=== PATIENT | female | born 1965 | race Caucasian/White ===

== ENCOUNTER 2023-08-27 02:43 | Day surgery (SDC) | payer OTHER, SELFPAY ==
[2023-08-07 15:08] VITALS: BMI 20.6
--- NOTE | 2023-08-26 09:15 | SUR.PREOP ---
Patient called regarding upcoming procedure. Reviewed preop instructions, appointment times, and procedure prep.
[2023-08-27 11:11] VITALS: BP 142/81; PULSE 83; RESP 16; TEMP 36.3; O2SAT 100; BMI 20.3
[2023-08-27] MEDS: LACTATED RINGERS 1,000 ML 150 ML IV CONT (11:20)
--- NOTE | 2023-08-27 11:28 | P.PNAN_ITS ---
Anes - Initial Pre Proc Eval Procedure: Operation Date: 08/27/23 12:30 Proposed Procedures p Screening Colonoscopy - Ryley Tijerina MD Date/Time: 08/27/23 11:28 Surgeon: Ryley Tijerina MD Pre Op Diagnosis: neoplasm screening Patient Data Age: 57 Gender: F Height: 1.73 m Weight: 60.7 kg Last Vital Signs Temp 97.3 F L 08/27/23 11:11 Pulse 83 08/27/23 11:11 Resp 16 08/27/23 11:11 BP 142/81 H 08/27/23 11:11 Pulse Ox 100 08/27/23 11:11 O2 Del Method Room Air 08/27/23 11:11 Allergies Allergy/AdvReac Type Severity Reaction Status Date / Time Penicillins AdvReac Rash Verified 08/27/23 11:09 Home Medications Medication Instructions Recorded Confirmed Type No Home Medications 08/27/23 08/27/23 History Patient hx anesthesia problems: none Family hx anesthesia problems: none Results Review: All pre-operative results and documents have been reviewed as part of the pre- operative evaluation. PMF Social History Social History Smoking status: Never smoker Alcohol use details: rarely Substance use type: does not use Living arrangements: with family Anes - Eval Final PreProcedure Day of Procedure 08/27/23 11:28 Patient weight: normal Heart: regular rate and rhythm Lungs: clear to auscultation Airway: Mallampati scale class II Neurological: alert and oriented Last oral intake: >/= 8 hours ASA classification: II Emergent: no Anesthetic plan: proceed Anesthesia type and monitoring: general GIVS and standard monitoring Results Review: All pre-operative results and documents have been reviewed as part of the pre- operative evaluation. Informed Consent: The patient's anesthetic plan and its attendant risks and benefits were discussed with the patient/family/POA. Questions were solicited and answers provided to the satisfaction of the patient/family/POA.
--- NOTE | 2023-08-27 11:49 | P.HP_ITS ---
History of Present Illness History of Present Illness Consent: Risks, benefits, and alternatives have been discussed and questions answered. Patient agrees to proceed with procedure. Chief complaint: neoplasm screening Narrative: Chantale Bunch is a 57 year old female Presents for screening colonoscopy. Patient's current weight appetite and bowel movements are normal. Patient denies abdominal pain. She has had no bleeding. Family history is noncontribu tory. Review of Systems Review of Systems: Review of systems noncontributory. [facility] Social History Social History Smoking status: Never smoker Alcohol use details: rarely Substance use type: does not use Living arrangements: with family Meds Home Medications and Allergies Home Medications Medication Instructions Recorded Confirmed Type No Home Medications 08/27/23 08/27/23 History Allergies Allergy/AdvReac Type Severity Reaction Status Date / Time Penicillins AdvReac Rash Verified 08/27/23 11:09 Vital Signs Vital Signs - 24 hr 08/27/23 11:11 Temperature 97.3 F L Pulse Rate 83 Respiratory Rate 16 Blood Pressure 142/81 H Pulse Oximetry 100 Oxygen Delivery Room Air Exam Narrative: Physical exam reveals patient to be alert. Vital signs stable. HEENT exam is unremarkable. Patient is anicteric. Lungs are clear to auscultation and percussion. Heart is without murmur or extra sounds. Abdomen bowel sounds are present soft nontender with no organomegaly. Digital external rectal exam normal. Assessment and Plan Assessment and plan (1) Encounter for screening colonoscopy: Code(s): Z12.11 - Encounter for screening for malignant neoplasm of colon Status: Acute Assessment and Plan: Patient presents today for screening colonoscopy. She appears to be at average risk for colon polyps. Further recommendations may be given after endoscopy.
[2023-08-27 12:12] VITALS: BP 99/62; PULSE 68; RESP 17; O2SAT 99
[2023-08-27 12:22] VITALS: BP 118/72; PULSE 73; RESP 20; O2SAT 100
[2023-08-27 12:32] VITALS: BP 114/82; PULSE 74; RESP 19; O2SAT 100
== END 2023-08-27 12:39 | disposition home or self-care (01) ==
PROVIDERS: PCP Internal Medicine; Visit Provider Internal Medicine Gastroenterology
PROC: 0DJD8ZZ Inspection of Lower Intestinal Tract, Via Natural or Artificial Opening Endoscopic (ICD-10-PCS; CPT 45378; principal; 2023-08-27 12:30)
DX: Z12.11 Encounter for screening for malignant neoplasm of colon (principal)
CPT/HCPCS: 45378; J2704; J7120